=== PATIENT | male | born 1980 | race African-American/Black ===

== ENCOUNTER 2024-02-01 13:05 | Inpatient (IN) | payer OTHER ==
[2024-02-01 13:30] VITALS: BMI 24.1
[2024-02-01] MEDS ORDERED: MAGNESIUM HYDROX 2400MG/30ML ORAL SUSPENSION 30 ML CUP PO PRN (15:42)
[2024-02-01] MEDS ORDERED: ONDANSETRON *ODT* 4 MG TABLET SL PRN (15:42)
[2024-02-01] MEDS ORDERED: guaiFENesin 600 MG TABLET.ER (FP) PO PRN (15:42)
[2024-02-01] MEDS ORDERED: ACETAMINOPHEN 325 MG TABLET (FP) PO PRN (15:42)
[2024-02-01] MEDS ORDERED: LOPERAMIDE HCL 2 MG CAPSULE PO PRN (15:42)
[2024-02-01] MEDS ORDERED: diazePAM 5 MG TABLET PO PRN (15:42)
[2024-02-01] MEDS ORDERED: POLYETHYLENE GLYCOL (HEALTHYLAX) 3350 17 GM PACKET PO PRN (15:42)
[2024-02-01] MEDS ORDERED: METHOCARBAMOL 500 MG TABLET PO PRN (15:42)
[2024-02-01] MEDS ORDERED: NALOXONE HCL (KLOXXADO) 8 MG SPRAY NS PRN (15:42)
[2024-02-01] MEDS ORDERED: IBUPROFEN 400 MG TABLET (FP) PO PRN (15:42)
[2024-02-01] MEDS ORDERED: hydrOXYzine PAMOATE 25 MG CAPSULE (FP) PO PRN (15:42)
[2024-02-01] MEDS ORDERED: IBUPROFEN 600 MG TABLET (FP) PO PRN (15:42)
[2024-02-01] MEDS ORDERED: BISMUTH SUBSALICYLATE 524 MG/30 ML PO PRN (15:42)
[2024-02-01] MEDS ORDERED: NALOXONE HCL 0.4 MG/ML VIAL IM PRN (15:42)
[2024-02-01] MEDS ORDERED: DICYCLOMINE HCL 10 MG CAPSULE PO PRN (15:42)
[2024-02-01] MEDS ORDERED: BENZOCAINE/MENTHOL (CHLORASEPTIC ) LOZENGE MM PRN (15:42)
[2024-02-01] MEDS ORDERED: MAG HYDROX/AL HYDROX/SIMETH 30 ML UNIT-DOSE CUP PO PRN (15:42)
[2024-02-01] MEDS ORDERED: BENZONATATE 200 MG CAPSULE PO PRN (15:42)
[2024-02-01] MEDS ORDERED: diazePAM 5 MG TABLET ONE (16:09)
[2024-02-01] MEDS: diazePAM 5 MG TABLET PO SCH (16:11)
[2024-02-01] MEDS ORDERED: MELATONIN 5 MG TABLETS PO SCH (22:00)
[2024-02-01] MEDS: risperiDONE 1 MG TABLET PO SCH (22:43)
[2024-02-01] MEDS: THIAMINE HCL 100 MG TABLET (FP) PO SCH (22:44)
[2024-02-01] MEDS: SUVOREXANT 10 MG TABLET PO PRN (22:44)
[2024-02-02] MEDS: PRENATAL VITAMINS W/ FOLIC ACID TABLET (FP) PO SCH (10:43)
[2024-02-02 11:56] LABS: HEMATOCRIT 39.8 % (35.4-49); HEMOGLOBIN 13.9 GM/dL (11.7-16.9); MCH 31.8 pg (25.7-33.7); MCHC 34.9 g/dl (32.0-35.9); MEAN CELL VOLUME 90.9 fl (80-96); PLATELET COUNT 261 10^3/uL (134-434); RBC 4.38 M/mm3 (4.00-5.60); RDW 14.2 % (11.9-15.9); WHITE BLOOD COUNT 4.9 K/mm3 (4.0-10.0)
[2024-02-02 12:08] LABS: CHLORIDE 108 mmol/L (98-107); POTASSIUM 4.3 mmol/L (3.5-5.1); SODIUM 141 mmol/L (136-145)
[2024-02-02 12:10] LABS: ALBUMIN 3.3 g/dl (3.4-5.0); ANION GAP 7 mmol/L (4-13); BLOOD UREA NITROGEN 11.8 mg/dL (7-18); CO2 27 mmol/L (21-32); GLUCOSE,RANDOM 99 mg/dL (74-106)
[2024-02-02 12:13] LABS: CREATININE 0.8 mg/dL (0.55-1.3); SGOT/AST 13 U/L (15-37); SGPT/ALT 15 U/L (13-61)
[2024-02-02 12:14] LABS: BILIRUBIN,TOTAL 0.3 mg/dL (0.2-1)
[2024-02-02 12:15] LABS: TOT PROT 6.6 g/dl (6.4-8.2)
[2024-02-02 12:16] LABS: ALK PHOS 88 U/L (45-117)
[2024-02-03] MEDS: diazePAM 5 MG TABLET PO SCH (05:37)
[2024-02-04] MEDS: diazePAM 5 MG TABLET PO SCH (06:35)
[2024-02-04 09:48] VITALS: BP 109/74; PULSE 105; RESP 20; TEMP 98.4
[2024-02-05] MEDS ORDERED: diazePAM 5 MG TABLET PO ONE (06:00)
== END 2024-02-04 09:30 | disposition home or self-care (01) | DRG 775 ==
LOC: YASAS 13:05 → Y6N 16:04
PROVIDERS: ADMIT Allergy & Immunology; ATTEND Surgery
PROC: HZ2ZZZZ Detoxification Services for Substance Abuse Treatment (ICD-10-PCS; principal; 2024-02-01)
DX: F10.230 Alcohol dependence with withdrawal, uncomplicated (principal); F15.20 Other stimulant dependence, uncomplicated; F17.210 Nicotine dependence, cigarettes, uncomplicated; F31.9 Bipolar disorder, unspecified; F90.9 Attention-deficit hyperactivity disorder, unspecified type; F20.9 Schizophrenia, unspecified; Z87.11 Personal history of peptic ulcer disease; Z28.310 Unvaccinated for COVID-19; Z28.9 Immunization not carried out for unspecified reason
CPT/HCPCS: 36415; 80053; 80307; 85027; 86780; 93005; 93010